=== PATIENT | female | born 1970 | race Two or more races ===

== ENCOUNTER 2023-03-01 10:41 | Emergency (ER) | payer MEDICAID ==
[~2023-03-01] VITALS: Ht 149.9 cm; Wt 64.7 kg
[2023-03-01 14:07] VITALS: BP 122/68; PULSE 77; RESP 14; TEMP 98.4; O2SAT 96
[2023-03-01] MEDS ORDERED: IBUP-1456 PO (14:13)
== END 2023-03-01 14:28 | disposition home or self-care (01) ==
LOC: ER 10:41
DX: M23.92 Unspecified internal derangement of left knee (principal)
CPT/HCPCS: 73562